=== PATIENT | female | born 1995 | race Caucasian/White ===

== ENCOUNTER 2025-03-26 06:44 | Outpatient (REF) | payer OTHER, SELFPAY ==
--- NOTE | ~2025-03-26 | US_ITS ---
CLINICAL HISTORY: RECURRENT UTIS US retroperitoneum Comparison: None provided Findings: Right kidney normal size and echotexture, 11.1 cm length. No hydronephrosis, mass or calculus. Normal color flow. Left kidney normal size and echotexture, 11.2 cm in length. No hydronephrosis, mass or calculus. Normal color flow. Urinary bladder is unremarkable. Prevoid volume 312 mL. Postvoid volume 27 mL. Ureteral jets are visualized bilaterally Impression: No sonographic finding to account for recurrent UTIs. This document has been electronically signed by: Ilsa Rogers MD on 03/26/2025 13:22:41
--- OUTSIDE RECORDS SUMMARY | 2025-03-26 06:47 | XMS_ITS | Clinical Summary ---
Author Organization [facility] Address [address] [place] [address] [place] [phone] Phone Care Team Providers Care Data Entry Technician Name Role Phone Pcp, Not Required Primary Care Provider Unavaila ble Allergies No known active allergies Medications No known medications Encounters Date Type Department Care Team Description 01/28/2025 5:30 PM EDT Office Visit [facility] [address] [place] [address] Nellie Tyler NP Dysuria (Primary Dx) from Last 3 Months Immunizations Immunization Administration Dates Next Due COVID-19, Unspecified Formulation 02/03/2022, Influenza, Unspecified Formulation 08/23/2023 Social History Tobacco Use Types Packs/Day Years Used Date Smoking Tobacco: Never Assessed Education Answer Date Recorded Are you interested in more education? Not on rae e 09/02/2023 Are you concerned about learning? Not on file 09/02/2023 No 09/02/2023 No 09/02/2023 Digital Access Answer Date Recorded No 09/02/2023 No 09/02/2023 Reliable internet access at home? Not on file 09/02/2023 Device with a working camera? Not on file Comments Unknown Sex and Gender Information Value Date Recorded Sex Assigned at Female 01/28/2025 5:24 PM EDT Legal Sex Female 4:45 PM EST Gender Identity Female 01/28/2025 5:24 PM EDT Sexual Orientation Straight 01/28/2025 5: 24 PM EDT Last Filed Vital Signs Vital Sign Reading Time Taken Comments Blood Pressure 120/81 01/28/2025 6:45 PM EDT Pulse 62 01/28/2025 6:45 PM EDT Temperature 36.4 C (97.6 F) 01/28/2025 6:45 PM EDT Respiratory Rate 20 01/28/2025 6:45 PM EDT Oxygen Saturation 99% 01/28/2025 6:45 PM EDT Inhaled Oxygen Concentration - - Weight 54.4 kg (120 lb) 01/28/2025 6:45 PM EDT Height 162.6 cm (5' 4 ) 01/28/2025 6:45 PM EDT Body Mass Index 20.6 01/28/2025 6:45 PM EDT Plan of Treatment Health Maintenance Due Date Last Done Comments Adult Td,Tdap Booster 1996 DEPRESSION SCREENING 2008 SMOKING Hx and SMOKELESS TOBACCO SCREENING 2009 HEPATITIS C SCREENING 2014 HIV ONE-TIME SCREENING (18-6 5 YEARS) 2014 PAP SMEAR 2017 INFLUENZA VACCINE (#1) 2025 08/23/2023 COVID-19 VACCINE (2024-2 6 season) 2025 02/03/2022, 01/13/2022 HEPATITIS A VACCINES Aged Out No long er eligible based on patient's age to complete this topic HIB VACCINES Aged Out No longer eligi ble based on patient's age to complete this topic MENINGOCOCCAL VACCINES (ACWY) Aged Out No longer eligible based on patient's age to complete this topic MENINGOCOCCAL VACCINES (B) Aged Out N o longer eligible based on patient's age to complete this topic PNEUMOCOCCAL VACCINES (0-49 years) Aged Out No longer eligible b ased on patient's age to complete this topic Medical Devices Not on file Procedures Procedure Name Priority Date/Time Associated Diagnosis Comments CHLAMYDIA TRACHOMATIS AND NEISSERIA GONORRHOEAE NUCLEIC ACID DETECTION Routine 01/28/2025 7:10 PM EDT Dysuria POCT URINE HCG Routine 01/28/2025 7:00 PM EDT Dysuria from Last 3 Months Results * Chlamydia Trachomatis and Neisseria Gonorrhoeae Nucleic Acid Detection (01/28/2025 7:10 PM EDT) CHLAMYDIA TRACHOMATIS Not Detected Not Detected [facility] NEISERIA GONORRHOEAE Not Detected Not Detected [facility] SPECIMEN TYPE URINE [facility] Urine (Urine) 01/28/2025 7:1 0 PM EDT 01/28/2025 8:30 PM EDT Nellie Tyler NP NON CULTURE MICROBIOLOGY F inal Result [address] [address] * Poct Urine HCG (01/28/2025 7:00 PM EDT) HCG, urine Negative, Internal QCs acceptable Negative [facility] Other 01/28/2025 7:00 PM EDT Nellie Tyler NP POINT OF CARE TEST ORDERAB LES Final Result Performing Organization Address City/[facility]/ZIP Co de Phone Number [facility] [address] [address], [facility] [phone] from Last 3 Months Insurance [employer] YAYO [employer] Care Teams Data Entry Technician Relationship Specialty Start Date End Date Pcp, Not Required [address] [place] [id number] PCP - General 01/28/25 Additional Source Comments The information contained in this document represents components of the legal health record. It is not the complete legal health record.[facility]
== END 2025-03-26 06:45 | disposition home or self-care (01) ==
LOC: HO.UMASIMG 06:44
PROVIDERS: Visit Provider Nurse Practitioner Family
DX: N39.0 Urinary tract infection, site not specified (principal)
CPT/HCPCS: 76770

== ENCOUNTER → 2025-03-26 08:30 | Outpatient (BNV) | payer OTHER, SELFPAY | PROVIDERS: Visit Provider Radiology Diagnostic Radiology | DX: N39.0 Urinary tract infection, site not specified (principal) | CPT/HCPCS: 76770 ==